=== PATIENT | female | born 1955 | race Caucasian/White ===

== ENCOUNTER 2016-10-01 18:16 | Emergency (ER) | payer BC ==
[~2016-10-01] VITALS: Ht 170.2 cm; Wt 84.1 kg
[2016-10-01 18:19] VITALS: TEMP 98.7
[2016-10-01] MEDS ORDERED: NORVASC 5MG5 MG/TAB PO (18:43)
[2016-10-01] MEDS ORDERED: DIOVAN HCT 25 M1 TAB PO (18:44)
[2016-10-01] MEDS ORDERED: LEVAQUIN 5500 MG/TA1 PO (18:45)
[2016-10-01] MEDS ORDERED: FLAGYL500 MG PO (18:47)
[2016-10-01 19:00] LABS: ADD PATHOLOGY DIFF REVIEW NO
[2016-10-01 19:05] LABS: HEMOGLOBIN 14.3 g/dl (12.5-16.0); MEAN CELL VOLUME 87 fl (80.0-100.0); MEAN CORPUSCULAR HEMOGLOBIN 30 pg (27.0-31.0); MEAN CORPUSCULAR HGB CONC 34 g/dl (33.0-37.0); MEAN PLATELET VOLUME 10.1 fl (7.4-10.4); PLATELET COUNT 378 K/mm3 (130-400); RED BLOOD COUNT 4.81 M/mm3 (4.10-5.30); REDCELL DISTRIBUTION WIDTH-CV 13.1 % (11.5-14.5); WHITE BLOOD COUNT 13.5 K/mm3 (4.8-10.8)
[2016-10-01 19:12] LABS: PH 7 (5-8); SQUAMOUS EPITHELIAL 0-2 /hpf; URINE APPEARANCE Clear; URINE BACTERIA None Seen /hpf; URINE BILIRUBIN Negative (NEGATIVE); URINE BLOOD 1+ (NEGATIVE); URINE COLOR Yellow; URINE GLUCOSE Negative (NEGATIVE); URINE KETONE 1+ (NEGATIVE); URINE RBC 0-2 /hpf; URINE UROBILINOGEN Negative (NEGATIVE); URINE WBC 0-2 /hpf
[2016-10-01 19:23] LABS: ALBUMIN 4.6 gm/dL (3.5-5.0); BILIRUBIN,TOTAL 0.7 mg/dL (0.0-1.0); C-REACTIVE PROTEIN 0.7 mg/dL (0.0-0.9); CALCIUM 9.5 mg/dL (8.4-10.2); CREATININE, serum 0.8 mg/dL (0.52-1.25)
[2016-10-01 19:24] LABS: BAND 13 % (0-10); NEUTROPHILS 69 % (42.0-75.2); TOTAL CELLS COUNTED 100
[2016-10-01] MEDS ORDERED: AMOXICILLIN 8751 TAB PO (19:34)
[2016-10-01 20:04] VITALS: BP 132/68; PULSE 97
== END 2016-10-01 20:06 | disposition home or self-care (01) ==
LOC: COL.ER 18:16
PROVIDERS: Family Medicine
DX: R53.1 Weakness (principal); F41.9 Anxiety disorder, unspecified; F43.9 Reaction to severe stress, unspecified; K57.92 Diverticulitis of intestine, part unspecified, without perforation or abscess without bleeding; I10 Essential (primary) hypertension